=== PATIENT | female | born 1960 | race Caucasian/White ===

== ENCOUNTER 2017-04-19 13:31 | Emergency (ER) | payer OTHER ==
[~2017-04-19] VITALS: Ht 157.5 cm; Wt 72.6 kg
--- NOTE | 2017-04-19 13:57 | EKG ---
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
[2017-04-19] MEDS ORDERED: KETOROLAC 30 MG/ML INJ. IV ONE (14:00)
[2017-04-19] MEDS ORDERED: IV NORMAL SALINE 1000ML BAG 1,000 ML IV ONE (14:00)
[2017-04-19] MEDS ORDERED: ONDANSETRON PF 4 MG/2 ML VIAL. IV ONE (14:15)
--- NOTE | 2017-04-19 14:15 | PHYS DOC ---
Past Medical History Past Medical History: Arthritis, High Cholesterol Past Surgical History: Appendectomy Alcohol Use: None Drug Use: None Adult General Chief Complaint Chief Complaint: DIZZY/LIGHT HEADED [facility] HPI Patient is a 56 year old female presenting to the emergency department for evaluation of dizziness that started this morning at approximately 10 AM. She says that she was just lying in bed when she felt a sensation as if she was going to pass out. She also says she started having left flank pain as well at the same time. She says the symptom of passing out gets worse when she is sitting up or moving around and she has not passed out. She says she has nausea with this and she also denies any dysuria hematuria fevers chills vomiting diarrhea constipation. Patient denies any room spinning sensation. Patient seems somewhat out of it with slow slurred speech and eyes droopy and seems somewhat sleepy. I asked her why she is so drowsy and she says she does not why but she is on multiple sedating medications including muscle relaxant, methocarbamol. She denies taking too much of any of her medications. Review of Systems Review of Systems Constitutional: Denies fever or chills [] Eyes: Denies change in visual acuity, redness, or eye pain [] HENT: Denies nasal congestion or sore throat [] Respiratory: Denies cough or shortness of breath [] Cardiovascular: No additional information not addressed in HPI [] GI: Denies abdominal pain. + nausea. No vomiting, bloody stools or diarrhea. + vaginal pressure : Denies dysuria or hematuria [] Musculoskeletal: Denies back pain or joint pain [] Integument: Denies rash or skin lesions [] Neurologic: Denies headache, focal weakness. + dizziness sensory changes [] Current Medications Current Medications Current Medications Medications (Trade) Dose Ordered Sig/Niraj Start Time Stop Time Status Last Admin Dose Admin Ketorolac Tromethamine (Toradol) 15 mg 1X ONCE 04/19/17 14:00 04/19/17 14:01 DC 04/19/17 14:14 15 MG Ondansetron HCl (Zofran) 8 mg 1X ONCE 04/19/17 14:15 04/19/17 14:18 DC 04/19/17 14:28 8 MG Sodium Chloride 1,000 ml @ 1,000 mls/hr 1X ONCE 04/19/17 14:00 04/19/17 14:59 DC 04/19/17 14:03 1,000 MLS/HR Allergies Allergies Allergies Coded Allergies Type Severity Reaction Last Updated Verified Penicillins Allergy Intermediate 04/19/17 Yes Physical Exam Physical Exam Constitutional: Well developed, well nourished, no acute distress, non-toxic appearance. [] HENT: Normocephalic, atraumatic, bilateral external ears normal, oropharynx moist, no oral exudates, nose normal. [] Eyes: PERRLA, EOMI, conjunctiva normal, no discharge. [] Neck: Normal range of motion, no tenderness, supple, no stridor. [] Cardiovascular:Heart rate regular rhythm, no murmur [] Lungs & Thorax: Bilateral breath sounds clear to auscultation [] Abdomen: Bowel sounds normal, soft, no tenderness, no masses, no pulsatile masses. [] Skin: Warm, dry, no erythema, no rash. [] Back: No tenderness, no CVA tenderness. [] Extremities: No tenderness, no cyanosis, no clubbing, ROM intact, no edema. [] Neurologic: Alert and oriented X 3, normal motor function, normal sensory function, no focal deficits noted. Normal finger to nose and heel to islas. Current Patient Data Vital Signs Vital Signs Date Time Temp Pulse Resp B/P (MAP) Pulse Ox O2 Delivery O2 Flow Rate FiO2 04/19/17 13:40 98.0 87 20 181/85 (117) 94 Room Air 98.0 Lab Values Laboratory Tests Test 04/19/17 14:00 White Blood Count 15.3 x10^3/uL (4.0-11.0) H Red Blood Count 5.19 x10^6/uL (3.50-5.40) Hemoglobin 15.8 g/dL (12.0-15.5) H Hematocrit 47.2 % (36.0-47.0) H Mean Corpuscular Volume 91 fL (79-100) Mean Corpuscular Hemoglobin 31 pg (25-35) Mean Corpuscular Hemoglobin Concent 34 g/dL (31-37) Red Cell Distribution Width 13.9 % (11.5-14.5) Platelet Count 234 x10^3/uL (140-400) Neutrophils (%) (Auto) 80 % (31-73) H Lymphocytes (%) (Auto) 12 % (24-48) L Monocytes (%) (Auto) 7 % (0-9) Eosinophils (%) (Auto) 0 % (0-3) Basophils (%) (Auto) 1 % (0-3) Neutrophils # (Auto) 12.3 x10^3uL (1.8-7.7) H Lymphocytes # (Auto) 1.8 x10^3/uL (1.0-4.8) Monocytes # (Auto) 1.0 x10^3/uL (0.0-1.1) Eosinophils # (Auto) 0.0 x10^3/uL (0.0-0.7) Basophils # (Auto) 0.1 x10^3/uL (0.0-0.2) Prothrombin Time 12.9 SEC (11.7-14.0) Prothrombin Time INR 1.0 (0.8-1.1) PTT 30 SEC (24-38) Sodium Level 143 mmol/L (136-145) Potassium Level 4.1 mmol/L (3.5-5.1) Chloride Level 104 mmol/L (98-107) Carbon Dioxide Level 29 mmol/L (21-32) Anion Gap 10 (6-14) Blood Urea Nitrogen 19 mg/dL (7-20) Creatinine 0.8 mg/dL (0.6-1.0) Estimated GFR (Cockcroft-Gault) 73.7 BUN/Creatinine Ratio 24 (6-20) H Glucose Level 122 mg/dL (70-99) H Calcium Level 9.1 mg/dL (8.5-10.1) Magnesium Level 1.9 mg/dL (1.8-2.4) Total Bilirubin 0.3 mg/dL (0.2-1.0) Aspartate Amino Transferase (AST) 23 U/L (15-37) Alanine Aminotransferase (ALT) 39 U/L (14-59) Alkaline Phosphatase 139 U/L (46-116) H Creatine Kinase 96 U/L (26-192) Troponin I Quantitative < 0.017 ng/mL (0.000-0.055) FG-Koh-C-Type Natriuretic Peptide 91 pg/mL (0-124) Total Protein 8.0 g/dL (6.4-8.2) Albumin 3.9 g/dL (3.4-5.0) Albumin/Globulin Ratio 1.0 (1.0-1.7) Thyroid Stimulating Hormone (TSH) 1.515 uIU/mL (0.358-3.74) Ethyl Alcohol Level < 10 mg/dL (0-10) Laboratory Tests 04/19/17 14:00 Laboratory Tests 04/19/17 14:00 EKG EKG [] Radiology/Procedures Radiology/Procedures CT of the abdomen and pelvis without contrast, 04/19/2017: History: Left flank pain Noncontrast scans were obtained utilizing the renal stone protocol, with multiplanar reconstructions produced. No intrarenal calculi are identified. The right renal collecting system and right ureter are not dilated. No right ureteral calculus is seen. The left renal collecting system is mildly dilated. There is a 6 mm calculus in the proximal left ureter at the upper L3 level just distal to the ureteropelvic junction. The distal left ureter is unremarkable. The partially filled urinary bladder shows no abnormality. There are minimal groundglass opacities in the lung bases. This is a nonspecific appearance which may be due to scarring or atelectasis. There is no evidence of pleural fluid. Portions of the liver are of lower than normal density suggesting patchy fatty infiltration. The gallbladder is unremarkable. No pancreatic abnormality is seen. The spleen is of normal size. There is mild thickening of the adrenal glands, more so on the left. This is probably due to mild adrenal hyperplasia or adenomatous change. There is moderate aortoiliac calcific plaquing. No abdominal or pelvic adenopathy is seen. The bowel loops are not dilated. Several small sigmoid diverticula are noted. No free fluid or free air is evident in the abdomen or pelvis. IMPRESSION: 1. 6 mm obstructing calculus in the proximal left ureter. 2. Additional miscellaneous findings as described above. PQRS Compliance Statement: One or more of the following individualized dose reduction techniques were utilized for this examination: 1. Automated exposure control 2. Adjustment of the mA and/or kV according to patient size 3. Use of iterative reconstruction technique DICTATED and SIGNED BY: CATHY KISER MD DATE: 04/19/17 1429 Course & Med Decision Making Course & Med Decision Making Patient with nonspecific dizziness more positionally related. I do not suspect a cerebellar stroke or other ischemia at this time. Patient will get labs urine have her nausea treated and reassess. Patient has left ureter stone and treated with Toradol fluids and Zofran and pain is somewhat improved however she still has some discomfort. I talked to patient and family about her possibly going home on Flomax with pain medicine and nausea medications and trying to pass it on her own. Patient was somewhat apprehensive about it and son said that there is no way that we are sending her home as son has had a kidney stone in the past and he does not think it is reasonable to go home. Patient may or may not pass this on her own and essentially patient and family are requesting to have her transferred to another facility given we do not have urology coverage and she cannot be admitted here. I spoke to the hospitalist at [facility], Dr. Hernández and she agreed to accept the patient. Patient does have leukocytosis and we were unable to obtain urine until just before the transfer so I'm going to withhold antibiotics at this point and make sure that we send the urine results to [facility]. I recommended ambulance transfer for the patient given she may have severe pain or experience other complications such as sepsis but patient refused accept the risks of and disability by not taking my recommendations. Patient will be transferred via private vehicle with son driving. Patient sent in stable condition to [facility]. Dragon Disclaimer Dragon Disclaimer This electronic medical record was generated, in whole or in part, using a voice recognition dictation system. Departure Departure Impression: Primary Impression: Ureteral calculus, left Additional Impressions: Leukocytosis Dizziness Disposition: 05 TRANSFER OTHER ([facility]) Condition: STABLE Referrals: FREEMAN MENENDEZ (PCP) Problem Qualifiers BETH MATT DO Apr 19, 2017 14:15
[2017-04-19 14:21] LABS: BASO # 0.1 x10^3/uL (0.0-0.2); BASO % 1 % (0-3); EOS % 0 % (0-3); HEMATOCRIT 47.2 % (36.0-47.0); HEMOGLOBIN 15.8 g/dL (12.0-15.5); LYMPH # 1.8 x10^3/uL (1.0-4.8); LYMPH % 12 % (24-48); MEAN CORPUSCULAR HEMOGLOBIN 31 pg (25-35); MEAN CORPUSCULAR HGB CONC 34 g/dL (31-37); MEAN CORPUSCULAR VOLUME 91 fL (79-100); MONO % 7 % (0-9); NEUT % 80 % (31-73); PLATELET COUNT 234 x10^3/uL (140-400); RED BLOOD COUNT 5.19 x10^6/uL (3.50-5.40); RED CELL DISTRIBUTION WIDTH 13.9 % (11.5-14.5); WHITE BLOOD COUNT 15.3 x10^3/uL (4.0-11.0)
[2017-04-19 14:29] LABS: PROTHROMBIN TIME PATIENT 12.9 SEC (11.7-14.0)
[2017-04-19 14:36] LABS: CALCIUM 9.1 mg/dL (8.5-10.1); CREATININE 0.8 mg/dL (0.6-1.0); GFR 73.7; POTASSIUM 4.1 mmol/L (3.5-5.1)
[2017-04-19 14:42] LABS: ALBUMIN 3.9 g/dL (3.4-5.0); MAGNESIUM 1.9 mg/dL (1.8-2.4); TOTAL BILIRUBIN 0.3 mg/dL (0.2-1.0)
--- NOTE | 2017-04-19 14:44 | RAD ---
CT of the abdomen and pelvis without contrast, 04/19/2017: History: Left flank pain Noncontrast scans were obtained utilizing the renal stone protocol, with multiplanar reconstructions produced. No intrarenal calculi are identified. The right renal collecting system and right ureter are not dilated. No right ureteral calculus is seen. The left renal collecting system is mildly dilated. There is a 6 mm calculus in the proximal left ureter at the upper L3 level just distal to the ureteropelvic junction. The distal left ureter is unremarkable. The partially filled urinary bladder shows no abnormality. There are minimal groundglass opacities in the lung bases. This is a nonspecific appearance which may be due to scarring or atelectasis. There is no evidence of pleural fluid. Portions of the liver are of lower than normal density suggesting patchy fatty infiltration. The gallbladder is unremarkable. No pancreatic abnormality is seen. The spleen is of normal size. There is mild thickening of the adrenal glands, more so on the left. This is probably due to mild adrenal hyperplasia or adenomatous change. There is moderate aortoiliac calcific plaquing. No abdominal or pelvic adenopathy is seen. The bowel loops are not dilated. Several small sigmoid diverticula are noted. No free fluid or free air is evident in the abdomen or pelvis. IMPRESSION: 1. 6 mm obstructing calculus in the proximal left ureter. 2. Additional miscellaneous findings as described above. PQRS Compliance Statement: One or more of the following individualized dose reduction techniques were utilized for this examination: 1. Automated exposure control 2. Adjustment of the mA and/or kV according to patient size 3. Use of iterative reconstruction technique
[2017-04-19 15:53] LABS: BILIRUBIN,URINE NEGATIVE (NEG); GLUCOSE,URINE NEGATIVE (NEG); NITRITE,URINE NEGATIVE (NEG); PH,URINE 6.5; PROTEIN,URINE 100 mg/dL (NEG-TRACE); UROBILINOGEN,URINE 0.2 mg/dL (0.2 mg/dL)
[2017-04-19 15:57] LABS: BARBITURATES NEG (NEG); BENZODIAZEPINES NEG (NEG); CANNABINOIDS NEG (NEG); COCAINE NEG (NEG); METHADONE NEG (NEG); OPIATES NEG (NEG); PHENCYCLIDINE NEG (NEG)
[2017-04-19 16:10] LABS: BACTERIA,URINE 0 /HPF (0-FEW); RBC,URINE TNTC /HPF (0-2); SQUAMOUS EPITHELIAL CELL,UR MOD /LPF; WBC,URINE 0 /HPF (0-4)
[2017-04-19 16:35] VITALS: BP 148/67
== END 2017-04-19 16:45 | disposition short-term general hospital (02) ==
LOC: ER 13:31
DX: N20.1 Calculus of ureter (principal); D72.829 Elevated white blood cell count, unspecified; R42 Dizziness and giddiness; M19.90 Unspecified osteoarthritis, unspecified site; E78.00 Pure hypercholesterolemia, unspecified; Z88.0 Allergy status to penicillin; Z79.01 Long term (current) use of anticoagulants; Z79.899 Other long term (current) drug therapy
CPT/HCPCS: 36415; 74176; 80053; 80307; 81001; 82550; 83735; 83880; 84443; 84484; 85025; 85610; 85730; 93005; 96361; 96374; 96375; 99285; G0480; J1885; J2405; J7030; G0479

== ENCOUNTER 2021-07-12 00:31 | Emergency (ER) | payer OTHER ==
[~2021-07-12] VITALS: Ht 170.2 cm; Wt 90.9 kg
[2021-07-12] MEDS ORDERED: IV NORMAL SALINE 1000ML BAG 1,000 ML IV ONE (00:45)
--- NOTE | 2021-07-12 00:59 | PHYS DOC ---
Past Medical History Past Medical History: Arthritis, High Cholesterol Past Surgical History: Appendectomy Smoking Status: Current Every Day Smoker Alcohol Use: None Drug Use: None General Adult EDM: Chief Complaint: SYNCOPE HPI: HPI: Patient is a 60 year old female presents for the evaluation of near syncopal episode. Patient scheduled to have a colonoscopy tomorrow. Patient states she started colonoscopy prep around 1600 hrs. Patient states she has had 4 bowel movements prior to arrival arrival she started to feel dizzy and lightheaded. Patient states she almost passed out. Patient has had associated nausea with dry heaving. Patient denies any associated abdominal discomfort. There is no complaints of chest pain or shortness of breath. Review of Systems: Review of Systems: Review of systems: Constitutional symptoms- No fever, no chills. Eyes- No Discharge, No Visual Loss Respiratory symptoms- No shortness of breath, No wheezing, No Dyspnea on Exertion Cardiovascular Systems; No chest pain, No Palpitations, No syncope Gastrointestinal symptoms: NO abdominal pain, positive nausea, no vomiting or diarrhea. Genitourinary symptoms: No dysuria. Musculoskeletal symptoms: No back pain No extremity pain. NEUROLOGICAL Symptoms: No headache, Positive generalized weakness; No focal Weakness positive dizziness Skin: No rash. Heart Score: C/O Chest Pain: N/A Risk Factors: Risk Factors: DM, Current or recent (<one month) smoker, HTN, HLP, family history of CAD, obesity. Risk Scores: Score 0 - 3: 2.5% MACE over next 6 weeks - Discharge Home Score 4 - 6: 20.3% MACE over next 6 weeks - Admit for Clinical Observation Score 7 - 10: 72.7% MACE over next 6 weeks - Early Invasive Strategies Current Medications: Current Medications Medications (Trade) Dose Ordered Sig/[facility] Start Time Stop Time Status Last Admin Dose Admin Sodium Chloride 1,000 ml @ 1,000 mls/hr 1X ONCE 07/12/21 00:45 07/12/21 01:44 Allergies: Allergies: Allergies Coded Allergies Type Severity Reaction Last Updated Verified Penicillins Allergy Intermediate 04/19/17 Yes Physical Exam: PE: General: alert, no acute distress. Skin: warm, dry and intact, no erythema, no rash. HENT: bilateral external ears normal, oropharynx moist, nose normal. Head:: Normocephalic, atraumatic. Neck: Trachea midline. Eyes: EOMI, Normal conjunctiva, No drainage CARDIOVASCULAR: Regular rate and rhythm RESPIRATORY: No respiratory distress Back: Full range of motion. MUSCULOSKELETAL: Full range of motion of bilateral upper and lower extremities. GASTROINTESTINAL: Abdomen soft without rebound or guarding. NEUROLOGICAL: Alert and noted to person, place and time. No neurological deficits observed Psychiatric: Cooperative. Normal judgment EKG: EKG: Performed at 0133 Rate 72 Normal sinus rhythm No ST elevation No ST depression No acute AR [] Radiology/Procedures: Radiology/Procedures: [] Course & Med Decision Making: Course & Med Decision Making Pertinent Labs and Imaging studies reviewed. (See chart for details) [] Patient evaluated for chief complaint. Work-up consisted of laboratory analysis and EKG. Results reviewed and discussed with patient and family. Treatment included IV fluids. Patient ambulated with a steady gait no complaints of dizziness or sensation of that she is going to pass out. Dragon Disclaimer: Dragon Disclaimer: This electronic medical record was generated, in whole or in part, using a voice recognition dictation system. Departure Departure Impression: Primary Impression: Near syncope Disposition: 01 HOME / SELF CARE / HOMELESS Condition: STABLE Referrals: FREEMAN MENENDEZ (PCP) Patient Instructions: Near-Syncope HUMPHREY WOOTEN I DO Jul 12, 2021 00:59
[2021-07-12 01:28] LABS: BASO # 0.1 x10^3/uL (0.0-0.2); BASO % 0 % (0-3); EOS # 0.1 x10^3/uL (0.0-0.7); EOS % 1 % (0-3); HEMATOCRIT 42.1 % (36.0-47.0); LYMPH % 13 % (24-48); MEAN CORPUSCULAR HEMOGLOBIN 31 pg (25-35); MEAN CORPUSCULAR HGB CONC 33 g/dL (31-37); MEAN CORPUSCULAR VOLUME 92 fL (79-100); MONO # 1.2 x10^3/uL (0.0-1.1); MONO % 8 % (0-9); NEUT # 12.4 x10^3/uL (1.8-7.7); NEUT % 79 % (31-73); PLATELET COUNT 239 x10^3/uL (140-400); RED BLOOD COUNT 4.59 x10^6/uL (3.50-5.40); RED CELL DISTRIBUTION WIDTH 13.1 % (11.5-14.5); WHITE BLOOD COUNT 15.8 x10^3/uL (4.0-11.0)
[2021-07-12 01:36] LABS: CREATININE 0.9 mg/dL (0.6-1.0); GFR 63.4; POTASSIUM 3.5 mmol/L (3.5-5.1)
[2021-07-12 01:42] LABS: ALBUMIN 3.2 g/dL (3.4-5.0); TOTAL BILIRUBIN 0.3 mg/dL (0.2-1.0); TOTAL PROTEIN 6.5 g/dL (6.4-8.2)
[2021-07-12 03:42] VITALS: BP 122/56
--- NOTE | 2021-07-12 11:44 | EKG ---
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
== END 2021-07-12 03:35 | disposition home or self-care (01) ==
LOC: ER 00:31
DX: R55 Syncope and collapse (principal); R42 Dizziness and giddiness; M19.90 Unspecified osteoarthritis, unspecified site; E78.00 Pure hypercholesterolemia, unspecified; F17.200 Nicotine dependence, unspecified, uncomplicated; Z88.0 Allergy status to penicillin
CPT/HCPCS: 36415; 80053; 84484; 85025; 93005; 96360; 99285; J7030